=== PATIENT | female | born 1955 | race Caucasian/White ===

== ENCOUNTER 2020-08-16 12:15 | Inpatient (IN) | payer MEDICARE, MEDICAID ==
[~2020-08-16] VITALS: Ht 165.1 cm; Wt 106.8 kg
[2020-08-16] MEDS ORDERED: SODIUM CHLORIDE 0.9% 1,000 ML IV ONE (15:00)
[2020-08-16] MEDS ORDERED: DOXYCYCLINE HYCLATE 100MG CAPSULE PO ONE (16:45)
[2020-08-16 16:46] LABS: BASOPHILS % 0.7 % (0.0-2.0); EOSINOPHILS % 1.8 % (0.0-5.0); HEMATOCRIT. 33.6 % (36.0-48.0); HEMOGLOBIN. 11.1 g/dL (12.0-16.0); LYMPHOCYTES % 21.4 % (20.0-50.0); MEAN CORPUSCULAR VOLUME 84.6 fL (81.0-99.0); MEAN PLATELET VOLUME 9.3 fl (7.4-10.4); MONOCYTES % 6.5 % (2.0-8.0); NEUTROPHILS % 69.6 % (40.0-76.0); PLATELET 243 x1000/uL (130-400); RED BLOOD CELL COUNT 3.97 mill/uL (4.2-5.4); RED CELL DISTRIBUTION WIDTH 15.2 % (11.6-14.6)
[2020-08-16 16:50] LABS: CHLORIDE 105 mEq/L (98-107)
[2020-08-16 16:53] LABS: INR 1.1; PROTHROMBIN TIME 11.3 sec (9.6-11.0)
[2020-08-16] MEDS ORDERED: ASPIRIN 81MG TABLET PO NR (17:15)
[2020-08-16] MEDS ORDERED: INSULIN REGULAR (HUMULIN R) 300UNITS/3ML SUBCUT NR (17:15)
[2020-08-16] MEDS ORDERED: FUROSEMIDE 40MG/4ML VIAL IVP NR (18:30)
[2020-08-16] MEDS ORDERED: NOREPINEPHRINE 8 MG in DEXT 5% WATER 242 ML IV PRN (18:45)
[2020-08-16] MEDS ORDERED: ACETAMINOPHEN 325MG TABLET PO PRN (18:45)
[2020-08-16] MEDS ORDERED: NITROGLYCERIN 0.4MG TABLET SL SL PRN (18:45)
[2020-08-16] MEDS ORDERED: LORAZEPAM 2MG/ML CPJ IV PRN (18:45)
[2020-08-16] MEDS ORDERED: GUAIFENESIN 200MG/10ML SUGAR FREE UDC PO PRN (18:45)
[2020-08-16] MEDS ORDERED: NOREPINEPHRINE 8MG/250ML PMX 250ML IV PRN (18:45)
[2020-08-16] MEDS ORDERED: MAGNESIUM/ALUMINUM HYDROXIDE/SIMETHICONE 30ML UDC PO PRN (18:45)
[2020-08-16] MEDS ORDERED: ONDANSETRON HCL 4MG/2ML INJ IV PRN (18:45)
[2020-08-16] MEDS ORDERED: ALBUTEROL 6.7GM HFA INHALER ORI PRN (18:45)
[2020-08-16] MEDS ORDERED: ENOXAPARIN 40MG/0.4ML SYR SUBCUT SCH (18:45)
[2020-08-16] MEDS ORDERED: CLONIDINE 0.1MG TABLET PO PRN (18:45)
[2020-08-16] MEDS ORDERED: DEXTROSE 50% WATER 50ML SYRINGE IV PRN (18:45)
[2020-08-16] MEDS: FUROSEMIDE 40MG/4ML VIAL IVP SCH (19:00)
[2020-08-16 19:22] LABS: CLARITY URINE CLEAR (CLEAR); COLOR URINE YELLOW (YELLOW); KETONES URINE NEGATIVE (NEGATIVE); LEUKOCYTE ESTERASE URINE 1+ (NEGATIVE); NITRITE URINE NEGATIVE (NEGATIVE); OCCULT BLOOD URINE TRACE (NEGATIVE); PROTEIN URINE 1+ (NEGATIVE)
[2020-08-16 19:32] LABS: TOTAL IRON BINDING CAPACITY 296 ug/dL (250-450)
[2020-08-16 20:05] LABS: FOLIC ACID (FOLATE) SERUM > 20.00 ng/mL (>5.38); VITAMIN B12 SERUM > 2000.0 pg/mL (211-911)
[2020-08-16 20:09] LABS: CANNABINOID URINE SCREEN PRESUMTIVE POSITIVE (NEGATIVE); OPIATES URINE SCREEN NEGATIVE (NEGATIVE); PHENCYCLIDINE URINE SCREEN NEGATIVE (NEGATIVE)
[2020-08-16 20:10] LABS: *AMPHETAMINES SCREEN URINE NEGATIVE (NEGATIVE); *BENZODIAZEPINES SCREEN URINE NEGATIVE (NEGATIVE); *COCAINE SCREEN URINE NEGATIVE (NEGATIVE); METHADONE URINE SCREEN NEGATIVE (NEGATIVE)
[2020-08-16 20:12] LABS: *BARBITURATES SCREEN URINE NEGATIVE (NEGATIVE)
[2020-08-16] MEDS ORDERED: ALBUTEROL 6.7GM HFA INHALER ORI SCH (21:00)
[2020-08-16] MEDS ORDERED: INSULIN GLARGINE UD 100 UNITS/ML SYR SUBCUT SCH (22:00)
[2020-08-16] MEDS: ASCORBIC ACID 500 MG TABLET PO SCH (22:03)
[2020-08-16] MEDS: LISINOPRIL 20MG TABLET PO SCH (22:04)
[2020-08-16] MEDS: FAMOTIDINE 20MG TABLET PO SCH (22:04)
[2020-08-16] MEDS: ENOXAPARIN 30MG/0.3ML SYR SUBCUT SCH (22:06)
[2020-08-16] MEDS: BLOOD SUGAR DIAGNOSTIC STRIP TEST SCH (22:21)
[2020-08-16] MEDS: INSULIN LISPRO 100 UNITS/ML SUBCUT SCH (22:24)
[2020-08-16] MEDS: SPIRONOLACTONE 25MG TABLET PO SCH (22:26)
[2020-08-17] VITALS (7 sets, daily range): BP systolic 133–151; BP diastolic 35–58
[2020-08-17 01:25] LABS: CREATINE KINASE 141 IU/L (26-192)
[2020-08-17 01:26] LABS: CREATINE KINASE MB FRACTION 1.5 ng/mL (0.5-3.6)
[2020-08-17] MEDS: ZOLPIDEM TARTRATE 5MG TABLET PO PRN ×2 (01:56→22:21)
[2020-08-17] MEDS ORDERED: GLIM1TAB MT (03:06)
[2020-08-17] MEDS ORDERED: BISO10TA11 PO (03:06)
[2020-08-17] MEDS ORDERED: METF-815 MT (03:06)
[2020-08-17] MEDS: BLOOD SUGAR DIAGNOSTIC STRIP TEST SCH ×4 (05:51→21:00)
[2020-08-17] MEDS: FUROSEMIDE 40MG/4ML VIAL IVP SCH ×2 (06:25→16:02)
[2020-08-17] MEDS: INSULIN LISPRO 100 UNITS/ML SUBCUT SCH ×4 (06:44→22:22)
[2020-08-17] MEDS: LISINOPRIL 20MG TABLET PO SCH ×2 (08:45→20:42)
[2020-08-17] MEDS: FAMOTIDINE 20MG TABLET PO SCH ×2 (08:45→20:41)
[2020-08-17] MEDS: ASCORBIC ACID 500 MG TABLET PO SCH ×2 (08:45→20:41)
[2020-08-17] MEDS: SPIRONOLACTONE 25MG TABLET PO SCH ×2 (08:46→20:42)
[2020-08-17] MEDS: ENOXAPARIN 30MG/0.3ML SYR SUBCUT SCH ×2 (08:52→20:43)
[2020-08-17 10:11] LABS: BASOPHILS % 0.7 % (0.0-2.0); EOSINOPHILS % 2.1 % (0.0-5.0); HEMATOCRIT. 34.3 % (36.0-48.0); HEMOGLOBIN. 11.1 g/dL (12.0-16.0); LYMPHOCYTES % 24.1 % (20.0-50.0); MEAN CORPUSCULAR HEMOGLOBIN 27.6 pg (28.0-32.0); MEAN CORPUSCULAR VOLUME 85.1 fL (81.0-99.0); MEAN PLATELET VOLUME 9.4 fl (7.4-10.4); MONOCYTES % 7.4 % (2.0-8.0); NEUTROPHILS % 65.7 % (40.0-76.0); PLATELET 293 x1000/uL (130-400); RED BLOOD CELL COUNT 4.03 mill/uL (4.2-5.4); RED CELL DISTRIBUTION WIDTH 15.2 % (11.6-14.6)
[2020-08-17 10:16] LABS: CHLORIDE 108 mEq/L (98-107)
[2020-08-17 10:24] LABS: CREATINE KINASE 208 IU/L (26-192)
[2020-08-17 10:27] LABS: CREATINE KINASE MB FRACTION 2.8 ng/mL (0.5-3.6)
[2020-08-17] MEDS: ZINC SULFATE 220 MG ( 50 ) CAPSULE PO SCH (12:50)
[2020-08-17] MEDS: LEVOFLOXACIN 500MG TABLET PO SCH (16:58)
[2020-08-17 18:31] LABS: BG BASE EXCESS -2.3 mmol/L (-2.0-2.0); BG CARBOXYHEMOGLOBIN 0.2 % (0.5-1.5); BG DEOXYHEMOGLOBIN 6.8 % (0.0-5.0); BG FRACTION INSPIRED OXYGEN 21; BG HCO3 ACT 21.3 mmol/L (22.0-26.0); BG METHEMOGLOBIN 0.1 % (0.0-1.5); BG OXYGEN SATURATION 93.2 % (92.0-98.5); BG OXYHEMOGLOBIN 92.9 % (94.0-97.0); BG PCO2 32.9 mmHg (35.0-45.0); BG PH 7.429 (7.350-7.450); BG PO2 65.9 mmHg (75.0-100.0); BG SAMPLE SITE RIGHT RADIAL; BG TOTAL HEMOGLOBIN 12.1 g/dL (12.0-18.0); BG VENT MODE ROOM AIR
[2020-08-17] MEDS: ACETAMINOPHEN 325MG TABLET PO PRN (20:42)
[2020-08-17] MEDS: DOCUSATE SODIUM 100MG CAPSULE PO PRN (22:21)
[2020-08-17] MEDS: INSULIN GLARGINE UD 100 UNITS/ML SYR SUBCUT SCH (22:23)
[2020-08-18] VITALS: BP 130/66
[2020-08-18 03:58] VITALS: BP 146/55
[2020-08-18] MEDS: FUROSEMIDE 40MG/4ML VIAL IVP SCH ×2 (06:43→17:04)
[2020-08-18] MEDS: BLOOD SUGAR DIAGNOSTIC STRIP TEST SCH ×4 (06:43→21:06)
[2020-08-18] MEDS: INSULIN LISPRO 100 UNITS/ML SUBCUT SCH ×4 (06:44→21:06)
[2020-08-18 08:00] VITALS: BP 149/64
[2020-08-18] MEDS: DOCUSATE SODIUM 100MG CAPSULE PO PRN ×2 (08:56→20:32)
[2020-08-18] MEDS: ENOXAPARIN 30MG/0.3ML SYR SUBCUT SCH ×2 (08:56→20:33)
[2020-08-18] MEDS: FAMOTIDINE 20MG TABLET PO SCH ×2 (08:56→20:32)
[2020-08-18] MEDS: ZINC SULFATE 220 MG ( 50 ) CAPSULE PO SCH (08:56)
[2020-08-18] MEDS: LISINOPRIL 20MG TABLET PO SCH ×2 (08:57→20:32)
[2020-08-18] MEDS: ASCORBIC ACID 500 MG TABLET PO SCH ×2 (08:57→20:31)
[2020-08-18] MEDS: SPIRONOLACTONE 25MG TABLET PO SCH ×2 (08:57→20:32)
[2020-08-18] MEDS: LEVOFLOXACIN 500MG TABLET PO SCH (11:52)
[2020-08-18 12:00] VITALS: BP 136/46
[2020-08-18 16:00] VITALS: BP 137/55
[2020-08-18] MEDS: ACETAMINOPHEN 325MG TABLET PO PRN (17:04)
[2020-08-18] MEDS ORDERED: IPRATROPIUM/ALBUTEROL 0.5-3(2.5)MG/3ML NEB HHN PRN (17:15)
[2020-08-18 20:00] VITALS: BP 104/80
[2020-08-18] MEDS: ZOLPIDEM TARTRATE 5MG TABLET PO PRN (20:32)
[2020-08-18] MEDS: INSULIN GLARGINE UD 100 UNITS/ML SYR SUBCUT SCH (21:15)
[2020-08-19] VITALS: BP 134/42
[2020-08-19] MEDS: ACETAMINOPHEN 325MG TABLET PO PRN (00:42)
[2020-08-19] MEDS: IPRATROPIUM/ALBUTEROL 0.5-3(2.5)MG/3ML NEB HHN SCH ×4 (01:27→21:09)
[2020-08-19 04:00] VITALS: BP 143/52
[2020-08-19] MEDS: INSULIN LISPRO 100 UNITS/ML SUBCUT SCH ×4 (05:55→21:28)
[2020-08-19] MEDS: BLOOD SUGAR DIAGNOSTIC STRIP TEST SCH ×4 (05:55→21:04)
[2020-08-19] MEDS: FUROSEMIDE 40MG/4ML VIAL IVP SCH ×2 (05:55→16:43)
[2020-08-19 08:00] VITALS: BP 144/69
[2020-08-19] MEDS: SPIRONOLACTONE 25MG TABLET PO SCH ×2 (08:25→21:22)
[2020-08-19] MEDS: ASCORBIC ACID 500 MG TABLET PO SCH ×2 (08:26→21:23)
[2020-08-19] MEDS: LISINOPRIL 20MG TABLET PO SCH ×2 (08:26→21:23)
[2020-08-19] MEDS: DOCUSATE SODIUM 100MG CAPSULE PO PRN (08:26)
[2020-08-19] MEDS: ENOXAPARIN 30MG/0.3ML SYR SUBCUT SCH ×2 (08:26→21:29)
[2020-08-19] MEDS: ZINC SULFATE 220 MG ( 50 ) CAPSULE PO SCH (08:26)
[2020-08-19] MEDS: FAMOTIDINE 20MG TABLET PO SCH ×2 (08:26→21:23)
[2020-08-19] MEDS ORDERED: LACTULOSE 20G/30ML UDC PO PRN (09:30)
[2020-08-19] MEDS: LEVOFLOXACIN 500MG TABLET PO SCH (11:56)
[2020-08-19 12:00] VITALS: BP 160/59
[2020-08-19 15:56] VITALS: BP 154/64
[2020-08-19 20:00] VITALS: BP 155/58
[2020-08-19] MEDS: TRAMADOL 50MG TABLET PO PRN (21:24)
[2020-08-19] MEDS: INSULIN GLARGINE UD 100 UNITS/ML SYR SUBCUT SCH (21:28)
[2020-08-20] VITALS: BP 137/51
[2020-08-20] MEDS: IPRATROPIUM/ALBUTEROL 0.5-3(2.5)MG/3ML NEB HHN SCH ×2 (01:51→09:54)
[2020-08-20 04:00] VITALS: BP 145/58
[2020-08-20] MEDS: TRAMADOL 50MG TABLET PO PRN (04:46)
[2020-08-20] MEDS: FUROSEMIDE 40MG/4ML VIAL IVP SCH (06:42)
[2020-08-20] MEDS: BLOOD SUGAR DIAGNOSTIC STRIP TEST SCH ×2 (06:51→12:01)
[2020-08-20] MEDS: INSULIN LISPRO 100 UNITS/ML SUBCUT SCH (06:56)
[2020-08-20 08:00] VITALS: BP 145/60
[2020-08-20 08:26] VITALS: BP 145/60
[2020-08-20] MEDS: LISINOPRIL 20MG TABLET PO SCH (08:37)
[2020-08-20] MEDS: ASCORBIC ACID 500 MG TABLET PO SCH (08:37)
[2020-08-20] MEDS: SPIRONOLACTONE 25MG TABLET PO SCH (08:37)
[2020-08-20] MEDS: ZINC SULFATE 220 MG ( 50 ) CAPSULE PO SCH (08:41)
[2020-08-20] MEDS: FAMOTIDINE 20MG TABLET PO SCH (08:41)
[2020-08-20] MEDS: ENOXAPARIN 30MG/0.3ML SYR SUBCUT SCH (08:41)
[2020-08-20 10:34] VITALS: BP 145/60
[2020-08-20] MEDS: LEVOFLOXACIN 500MG TABLET PO SCH (11:53)
[2020-08-20] MEDS ORDERED: INSULIN GLARGINE UD 100 UNITS/ML SYR SUBCUT SCH (22:00)
== END 2020-08-20 12:25 | disposition home health service (06) | DRG 871 ==
LOC: ER 12:15 → EDBEDREQTM 18:24 → EDBEDREQ 18:24 → SUPCPDRO 18:30 → CANRESERV 20:49 → ENRESERV 20:49 → 7EST 08-17 01:03 → 5WST 08-17 17:40
PROVIDERS: ADMIT Internal Medicine; ATTEND Internal Medicine
DX: A41.9 Sepsis, unspecified organism (principal); J96.00 Acute respiratory failure, unspecified whether with hypoxia or hypercapnia; J18.9 Pneumonia, unspecified organism; I50.43 Acute on chronic combined systolic (congestive) and diastolic (congestive) heart failure; E87.1 Hypo-osmolality and hyponatremia; E44.0 Moderate protein-calorie malnutrition; N39.0 Urinary tract infection, site not specified; J81.1 Chronic pulmonary edema; D63.8 Anemia in other chronic diseases classified elsewhere; E83.51 Hypocalcemia; M19.90 Unspecified osteoarthritis, unspecified site; D64.9 Anemia, unspecified; I11.0 Hypertensive heart disease with heart failure; B96.20 Unspecified Escherichia coli [E. coli] as the cause of diseases classified elsewhere; E66.01 Morbid (severe) obesity due to excess calories; Z20.828 Contact with and (suspected) exposure to other viral communicable diseases; F12.99 Cannabis use, unspecified with unspecified cannabis-induced disorder; Z68.39 Body mass index [BMI] 39.0-39.9, adult; Z88.0 Allergy status to penicillin; Z82.49 Family history of ischemic heart disease and other diseases of the circulatory system; Z79.899 Other long term (current) drug therapy
CPT/HCPCS: 36415; 36600; 71045; 80053; 80305; 81003; 82375; 82550; 82553; 82607; 82746; 82805; 82962; 83036; 83540; 83550; 83735; 83880; 84100; 84145; 84484; 85025; 85379; 87077; 87186; 87635; 93005; 93306; 93970; 97162; 97166; 99285; J1650; J1815; J1940